=== PATIENT | male | born 1980 | race Caucasian/White ===

== ENCOUNTER 2020-12-10 00:07 | Emergency (ER) | payer BC ==
[2020-12-10] MEDS ORDERED: Ondansetron 4 MG Tab.DIS PO STA (00:08)
[2020-12-10] MEDS ORDERED: Acetaminophen 500 MG Tab PO STA (00:09)
--- NOTE | 2020-12-10 01:17 | EDM.PDOC ---
ED HPI GENERAL MEDICAL PROBLEM - General Chief Complaint: Fever Stated Complaint: POSSIBLE COVID Time Seen by Provider: 12/10/20 00:15 Source of Information: Reports: Patient History Limitations: Reports: No Limitations - History of Present Illness INITIAL COMMENTS - FREE TEXT/NARRATIVE: Patient presented to the ED because of cough,dyspnea,fever,chills for 5 day. She has a history of asthma, she used her inhaler without significant relief of her cough and dyspnea. - Related Data Allergies Allergy/AdvReac Type Severity Reaction Status Date / Time No Known Allergies Allergy Verified 12/10/20 00:29 Home Meds: Home Meds Azithromycin [Zithromax] 500 mg PO DAILY #5 tab 12/10/20 [Rx] predniSONE [Prednisone] 40 mg PO DAILY #10 tablet 12/10/20 [Rx] Past Medical History Cardiovascular History: Reports: Hypertension Respiratory History: Reports: Asthma - Infectious Disease History Infectious Disease History: Reports: MRSA Other Infectious Disease History: Right foot 2007 Social & Family History - Family History Family Medical History: No Pertinent Family History - Tobacco Use Tobacco Use Status *Q: Current Every Day Tobacco User Years of Tobacco use: 15 Packs/Tins Daily: 0.5 - Caffeine Use Caffeine Use: Reports: Coffee - Recreational Drug Use Recreational Drug Use: No ED ROS GENERAL - Review of Systems Review Of Systems: See Below Constitutional: Reports: Fever, Chills, Malaise HEENT: Reports: No Symptoms Respiratory: Reports: Shortness of Breath, Cough Cardiovascular: Reports: No Symptoms Endocrine: Reports: No Symptoms GI/Abdominal: Reports: No Symptoms, Nausea Musculoskeletal: Reports: No Symptoms Skin: Reports: No Symptoms Neurological: Reports: No Symptoms Psychiatric: Reports: No Symptoms ED EXAM, GENERAL - Physical Exam Exam: See Below Exam Limited By: No Limitations General Appearance: Alert, No Apparent Distress Eye Exam: Bilateral Eye: PERRL Ears: Normal External Exam, Normal Canal Nose: Normal Inspection, Normal Mucosa, No Blood Throat/Mouth: Normal Inspection, Normal Lips, Normal Teeth Head: Atraumatic, Normocephalic Neck: Normal Inspection, Supple, Non-Tender Respiratory/Chest: Decreased Breath Sounds, Rhonchi, Wheezing Cardiovascular: Normal Peripheral Pulses, Regular Rate, Rhythm, No Edema, No Gallop, No JVD, No Murmur, No Rub GI/Abdominal: Normal Bowel Sounds, Soft, Non-Tender, No Organomegaly Back Exam: Normal Inspection, Full Range of Motion Extremities: Normal Inspection, Normal Range of Motion, Non-Tender Course - Vital Signs Text/Narrative:: CXR-see result Tylenol 1000 mg PO x1 Duoneb x1 Solumedrol 125 mg IM x1 Zofran ODT 4 mg PO x1 Last Recorded V/S: Last Vital Signs Temp 37.2 C 12/10/20 01:40 Pulse 84 12/10/20 01:40 Resp 18 12/10/20 01:40 BP 103/46 L 12/10/20 01:40 Pulse Ox 97 12/10/20 01:40 - Orders/Labs/Meds Orders: Active Orders 24 hr Category Date Time Status Chest 1V Frontal [CR] Stat Exams 12/10/20 00:08 Taken Isolation [COMM] Routine Oth 12/10/20 00:10 Ordered Labs: Laboratory Tests 12/10/20 Range/Units 00:12 SARS-CoV-2 RNA ([facility]) Negative (NEGATIVE) Meds: Medications Discontinued Medications Generic Name Dose Route Start Last Admin Trade Name Hallie PRN Reason Stop Dose Admin Acetaminophen 1,000 mg 12/10/20 00:09 12/10/20 00:20 Acetaminophen 500 Mg Tab PO 12/10/20 00:10 1,000 mg NOW STA Administration Albuterol/Ipratropium 3 ml 12/10/20 01:21 12/10/20 01:33 Albuterol/Ipratropium 3.0-0.5 Mg/3 Ml Neb Soln NEB 12/10/20 01:22 3 ml ONETIME ONE Administration Methylprednisolone Sodium Succinate 125 mg 12/10/20 01:21 12/10/20 01:34 Methylprednisolone Sodium Succinate 125 Mg/2 Ml Sdv IM 12/10/20 01:22 125 mg NOW STA Administration Ondansetron HCl 4 mg 12/10/20 00:08 12/10/20 01:33 Ondansetron 4 Mg Tab.Dis PO 12/10/20 00:09 Not Given NOW STA Departure - Departure Time of Disposition: 01:30 Disposition: Home, Self-Care 01 Condition: Good Clinical Impression: URI (upper respiratory infection), Gastroenteritis, Asthma exacerbation - Discharge Information Prescriptions: predniSONE [Prednisone] 40 mg PO DAILY #10 tablet Instructions: Viral Gastroenteritis, Adult, [id number], Upper Respiratory Infection, Adult, [id number], Asthma, Adult, [id number] Forms: ED Department Discharge Additional Instructions: Please read discharge instructions on viral URI and stomach flu Prednisone 20 mg, 2 tablets every morning for 5 days Zithromax 500 mg morris for 5 days Drink at least 2 liters daily Frequent hand washing Take tylenol 1000 mg every 8 hours as needed for fever Follow up as needed Sepsis Event Note (ED) - Evaluation Sepsis Screening Result: Possible Sepsis Risk - Focused Exam Vital Signs: Vital Signs Temp Pulse Resp BP Pulse Ox 12/10/20 01:40 37.2 C 84 18 103/46 L 97 12/10/20 00:10 37.5 C 104 H 18 141/81 H 96 - My Orders Last 24 Hours: My Active Orders 12/10/20 00:08 Chest 1V Frontal [CR] Stat 12/10/20 00:10 Isolation [COMM] Routine - Assessment/Plan Last 24 Hours: My Active Orders 12/10/20 00:08 Chest 1V Frontal [CR] Stat 12/10/20 00:10 Isolation [COMM] Routine
[2020-12-10] MEDS ORDERED: Albuterol/Ipratropium 3.0-0.5 MG/3 ML Neb Soln NEB ONE (01:21)
[2020-12-10] MEDS ORDERED: methylPREDNISolone Sodium Succinate 125 MG/2 ML SDV IM STA (01:21)
== END 2020-12-10 01:50 | disposition home or self-care (01) ==
LOC: FB.ED 00:07
DX: J45.901 Unspecified asthma with (acute) exacerbation (principal); K52.9 Noninfective gastroenteritis and colitis, unspecified; J06.9 Acute upper respiratory infection, unspecified; I10 Essential (primary) hypertension; Z72.0 Tobacco use
CPT/HCPCS: 71045; 87635; 87804; 96372; 99285; A9270; J2930; J7620-GY; U0002

== ENCOUNTER 2023-08-12 04:19 | Emergency (ER) | payer BC, MEDICAID, OTHER ==
[2023-08-12] MEDS ORDERED: Acetaminophen/Codeine 300-30 MG Tab PO ONE (04:20)
[2023-08-12] MEDS ORDERED: Amoxicillin 500 MG Cap PO ONE (04:20)
== END 2023-08-12 04:49 | disposition home or self-care (01) ==
LOC: FB.ED 04:19
DX: K04.7 Periapical abscess without sinus (principal); I10 Essential (primary) hypertension; J45.909 Unspecified asthma, uncomplicated
CPT/HCPCS: 99282; A9270-GY